=== PATIENT | female | born 1975 | race Caucasian/White ===

== ENCOUNTER 2018-12-01 20:29 | Observation (INO) | payer BC, SELFPAY ==
[2018-12-01 20:30] VITALS: BP 165/98; PULSE 91; RESP 19; TEMP 37; O2SAT 97; BMI 45.8
--- NOTE | 2018-12-01 20:33 | RAD_ITS ---
STUDY: X-RAY CHEST REASON FOR EXAM: Female, 43 years old. Chest tightness. TECHNIQUE: 5 COMPARISON: None. FINDINGS: The lungs are clear and expanded. There is no demonstrated pleural abnormality. Normal size heart. Normal mediastinum and damaso. Normal visualized pulmonary arteries. Normal visualized aortic arch and descending thoracic aorta. Normal visualized thoracic spine. Normal visualized ribs, clavicles, and shoulders. There is no demonstrated abnormality of the visualized soft tissue structures of the upper abdomen. RAD/Chest 1 View (Portable) IMPRESSION: Normal x-ray examination of the chest. Electronically Signed: Steve Leahy DO at 21:15 EST Tel [phone], Service support ,
--- NOTE | 2018-12-01 20:33 | EKG12_ITS ---
Test Reason : CHEST DISCOMFORT Blood Pressure : / mmHG Vent. Rate : 074 BPM Atrial Rate : 074 BPM P-R Int : 086 ms QRS Dur : 100 ms QT Int : 396 ms P-R-T Axes : 050 009 026 degrees QTc Int : 439 ms Sinus rhythm with short NC Low voltage QRS Cannot rule out Inferior infarct , age undetermined Abnormal ECG Confirmed by RICKEY RICKETTS, KARI ([id number]), photography editor MALENA ADAMS ([id number]) on 12/05/2018 9:20:12 AM Referred By: IQRA SULLIVAN Confirmed By:KARI LANG MD
[2018-12-01 21:15] VITALS: O2SAT 99
[2018-12-01 21:32] LABS: Absolute Lymphocyte Count 2.09 X10^3/ul (0.83-4.51); Basophil# 0.01 X10^3/uL; Basophil% 0.1 % (0-1); Eosinophil# 0.15 X10^3/uL; Eosinophils% 1.9 % (0-5); Hematocrit 44.1 % (37-47); Hemoglobin 14.4 g/dl (12.0-15.0); Lymphocyte # 2.09 X10^3/ul (4.0); Mean Corp Hgb Conc 32.7 g/gl (32-36); Mean Corpuscular Hgb 28.5 pg (27.0-32.0); Mean Corpuscular Volume 87.3 fL (81-99); Mean Platelet Vol. 10.7 fl (6.2-12.0); Monocyte# 0.54 X10^3/uL; Neutrophil # 4.95 X10^3/uL (2.7-7.7); Neutrophil % 63.9 % (47-70); Platelet Count 210 K/mm3 (150-450); RBC Distribution Width CV 13.2 % (11.6-14.6); RBC Distribution Width SD 41.9 fl (35.1-43.9); Red Blood Count 5.05 M/mm3 (4.2-5.4); White Blood Count 7.8 K/mm3 (4.4-11.0)
[2018-12-01 21:33] LABS: POSITIVE COUNT NO; POSITIVE DIFFERENTIAL NO; POSITIVE MORPHOLOGY NO
[2018-12-01 21:53] LABS: Anion Gap 6 (5-15); BUN 12 mg/dL (7-18); Calcium,Total 8.9 mg/dL (8.5-10.1); Chloride 107 mmol/L (98-107); EST Glomerular Filtration Rate 84 mL/min (>60); Est Glom Filt Rate - Afr Amer 101 mL/min (>60); Estimated Creatinine Clearance 75.78 ml/min; Glucose 87 mg/dL (74-106); Potassium 3.7 mmol/L (3.5-5.1); Sodium Level 138 mmol/L (136-145)
--- NOTE | 2018-12-01 22:01 | ED.VISSUMM ---
- ER Visit Summary Date of Service: 12/01/18 Chief Complaint: [Chest pain] History of Present Illness: The patient is a 43 F [presents to the emergency department complaint chest pain times 2 weeks. Patient states that she is had intermittent discomfort of tightness that is retrosternal at times will radiate towards her left shoulder. Patient does not seem to think it is exertional per se. Patient at times has had some pain in her hands but she is not sure if that is just related to her work. She denies any nausea or vomiting or diaphoresis. He denies recent travel or surgery. Patient is concerned because she does not go to a doctor and her father at age 53 of a massive heart attack.] Physical Examination: [HEENT-PERRLA, EOMI. Cranial nerves II through XII grossly intact. TMs clear. Mucous membranes moist. No adenopathy. Cardiovascular-regular rate and rhythm without murmur or ectopy Lungs-clear to auscultation, chest wall stable without crepitus or subcu emphysema Abdomen-normoactive bowel sounds, soft, nontender, no rebound or rigidity, no peritoneal signs. Extremities-intact ?4, normal range of motion, normal pulses, atraumatic] Test Results: EKG obtained arrival shows sinus rhythm with a ventricular rate of 74 bpm with a short [place] segment otherwise no acute ST segment changes noted. CBC with differential is normal. Chemistries were unremarkable. Troponin was less than 0.015. Chest x-ray showed nothing acute.] Emergency Department Course and Treatment: [Patient received aspirin in the emergency department. Patient initially presented hypertensive with a blood pressure 169/98 however without any treatment her blood pressure improved to the 130s over 80s.] Treatment Plan: [Admit for further workup and evaluation] Disposition: [Admit] Impression: [Chest pain-rule out acute coronary syndrome.] This note was generated with [employer] dictation software. It may contain incorrect words, spelling, and punctuation that were not noted in review of the chart prior to signing ED Disposition - Plan for ED Patient: Referrals: Briseyda Dickey MD [Primary Care Provider] -
[2018-12-01 22:10] VITALS: BP 137/94; PULSE 82; RESP 20; O2SAT 98
[2018-12-01] MEDS: Aspirin 81 MG TAB.CHEW 324 MG PO (22:11)
--- NOTE | 2018-12-01 22:12 | HP.PCM_ITS ---
Problem List (1) Chest pain Status: Acute History of Present Illness Date of Admission: 12/01/18 Chief Complaint: chest pain The patient is a 43 year old F with a significant history of chronic diarrhea; asthma and allergies who presented to the emergency department with 1-2-week history of substernal episodic pressure-like chest pain. Also he complained of pain at the shoulder blade. He also reports that he is unable to yawn completely. Prior to that he he used to see an [employer] certified internetwork expert but now has an appointment to see a carbon electrodes supervisor. Also patient had SOB and because she has no prescription for breathing treatment she tried her son's Ventolin. She reports bilateral forearm pain left worse than right. She thinks that her bilateral forearm pain is from with at her job. She reports that left forearm is worse since she is left-handed. She denies any nausea, vomiting or diaphoresis. Past Medical History Medical History: Medical History (Last Updated 12/02/18 @ 08:02 by Dexter Rosa MD) Asthma J45.909 Allergies No Known Allergies Allergy (Verified 12/01/18 20:30) Home Medications: Ambulatory Orders Medication Instructions Recorded Loperamide HCl [Imodium A-D] 4 mg PO DAILY 12/01/18 P-Ephed HCl/Fexofenadine HCl 1 tab.sr PO DAILY 12/01/18 [Rita-D 24 Hour Tablet] Surgical History: appendectomy Lives: With Family Smoking Status: Never smoker Alcohol: Rare - *Family History Maternal History Items: Heart Disease, Hypertension Paternal History Items: Heart Disease - Her father had a massive heart attack at 53. Also his paternal grandparents from heart attack. Review of Systems Constitutional: Denies: Chills, Fever, Weight Change HEENT: Denies: Head Aches, Sinus Congestion, Sinus Drainage Cardiovascular: Reports: Chest Pain. Denies: Palpitations Respiratory: Reports: Shortness of Breath. Denies: Cough, Sputum production Gastrointestinal: Denies: Abdominal Pain, Nausea, Vomiting Genitourinary: Denies: Dysuria Musculoskeletal: Denies: Joint Pain, Joint Tenderness Skin: Denies: Rash, Wounds Neurological: Denies: Numbness, Tingling, Focal weakness Psychiatric: Denies: Anxiety, Depression, Homicidal Ideations, Suicidal Ideations Hematologic/ Lymphatic: Denies: Easy Bruising, Easy Bleeding VTE Information - Inpt Only VTE Present on Admission: No VTE Mechan Device Prophylaxis: None VTE Pharm Prophylaxis ordered?: Yes Patient Problems: Active and Suspected Problems Chest pain (Acute) - Physical Exam General: Alert, Oriented x3, Cooperative HEENT: Atraumatic, PERRLA, EOMI, Normocephalic Neck: Supple, No JVD, Negative Carotid Bruits Lungs: Clear to auscultation, Normal air movement Cardiovascular: Regular rate, No murmurs Abdomen: Bowel Sounds Present, Soft, Non Tender Extremities: No edema, Capillary Refill Less than 3 Seconds Skin: No rashes, No breakdown Musculoskeletal: No Tenderness to Palpation of Joints or Extremities Neurological: Neuro grossly intact Psych/Mental Status: Normal Affect, Appropriate Vital Signs Temp Pulse Resp BP Pulse Ox 98.6 F 82 20 H 137/94 H 98 12/01/18 20:30 12/01/18 22:10 12/01/18 22:10 12/01/18 22:10 12/01/18 22:10 Oxygen Delivery Method Room Air Weight: 117.3 kg Body Mass Index (BMI) 45.8 Laboratory Tests Past 24 Hrs 12/01/18 12/01/18 21:20 21:20 WBC 7.8 RBC 5.05 Hgb 14.4 Hct 44.1 MCV 87.3 MCH 28.5 MCHC 32.7 RDW 13.2 RDW Differential 41.9 Plt Count 210 MPV 10.7 Immature Gran % (Auto) 0.100 Neut % (Auto) 63.9 Lymph % (Auto) 27.0 [place] % (Auto) 7.0 Eos % (Auto) 1.9 Baso % (Auto) 0.1 Absolute Neuts (auto) 5.0 Absolute Lymphs (auto) 2.09 Total Counted Not Reportable Sodium 138 Potassium 3.7 Chloride 107 Carbon Dioxide 25.0 Anion Gap 6 BUN 12 Creatinine 0.80 Estim Creat Clear Calc 75.78 Est GFR (MDRD) Af Amer 101 Est GFR (MDRD) Non-Af 84 BUN/Creatinine Ratio 15.0 Glucose 87 Calcium 8.9 Troponin I < 0.015 Assessment/Plan All Active Problems Chest pain (Acute) The patient is a 43 year old F with a significant history of chronic diarrhea; asthma and allergies who presented to the emergency department with 1-2-week history of substernal episodic pressure-like chest pain. Chest pain Admit to a monitored bed on pcu CXR independently reviewed confirms no acute cardiopulmonary process. EKG independently reviewed confirms no ST or T wave abnormality. Received aspirin 325 mg in the emergency department. ASA 81 mg p.o. daily SL NTG 0.4 mg prn as needed for chest pain We will check lipid panel. Serial cardiac enzymes Stat EKG as needed for chest pain Tread mill Stress test in the AM if the cardiac enzymes are negative History of Asthma PRN albuterol ordered. Allergies On Rita-D at home. Claritin ordered in the patient. Chronic Diarrhea Imodium ordered. DVT prophylaxis Continue with Lovenox. Code Visit OBSV E&M: 92146 Initial observation care L3
[2018-12-01 22:44] VITALS: BP 132/95; PULSE 81; RESP 15; TEMP 35.9; O2SAT 98
[2018-12-01 23:30] VITALS: BP 125/85; PULSE 74; RESP 18; O2SAT 97
[2018-12-01 23:44] VITALS: PULSE 81
[2018-12-02] VITALS (8 sets, daily range): BP systolic 124–152; BP diastolic 69–96; PULSE 71–109; RESP 16–18; TEMP 36.4–36.8; O2SAT 97–100; BMI 45.2; BMI 45.3
[2018-12-02 04:20] LABS: Absolute Lymphocyte Count 1.78 X10^3/ul (0.83-4.51); Absolute Neutrophil Count 3.9 X10^3/uL (2.0-7.7); Basophil# 0.02 X10^3/uL; Basophil% 0.3 % (0-1); Eosinophil# 0.14 X10^3/uL; Eosinophils% 2.2 % (0-5); Hematocrit 38.4 % (37-47); Hemoglobin 12.5 g/dl (12.0-15.0); Lymphocyte # 1.78 X10^3/ul (4.0); Mean Corp Hgb Conc 32.6 g/gl (32-36); Mean Corpuscular Hgb 28.5 pg (27.0-32.0); Mean Corpuscular Volume 87.5 fL (81-99); Mean Platelet Vol. 10.6 fl (6.2-12.0); Monocyte# 0.51 X10^3/uL; Neutrophil % 61.3 % (47-70); Platelet Count 186 K/mm3 (150-450); RBC Distribution Width SD 41.8 fl (35.1-43.9); Red Blood Count 4.39 M/mm3 (4.2-5.4); White Blood Count 6.4 K/mm3 (4.4-11.0)
[2018-12-02 04:25] LABS: POSITIVE COUNT NO; POSITIVE DIFFERENTIAL NO; POSITIVE MORPHOLOGY NO
[2018-12-02 04:26] LABS: Partial Thromboplast Time 30.8 Seconds (24.1-36.2); Prothrombin Time (Protime)PT. 13.1 SECONDS (11.7-14.9)
[2018-12-02 04:35] LABS: BUN 11 mg/dL (7-18); BUN/Creat Ratio 14.3 RATIO (10-20); Calcium,Total 8.5 mg/dL (8.5-10.1); Cholesterol 189 mg/dL (200); Creatinine, Serum 0.77 mg/dL (0.55-1.02); EST Glomerular Filtration Rate 87 mL/min (>60); Est Glom Filt Rate - Afr Amer 106 mL/min (>60); Estimated Creatinine Clearance 78.73 ml/min; Glucose 88 mg/dL (74-106); Triglycerides 166 mg/dL
[2018-12-02 04:36] LABS: Anion Gap 5 (5-15); Chloride 108 mmol/L (98-107); High Density Lipoprotein 42 mg/dL; Potassium 3.8 mmol/L (3.5-5.1); Sodium Level 141 mmol/L (136-145); Very Low Density Lipoprotein 33 mg/dL (5-40)
--- NOTE | 2018-12-02 05:55 | EKG12_ITS ---
Test Reason : AM Blood Pressure : / mmHG Vent. Rate : 070 BPM Atrial Rate : 070 BPM P-R Int : 124 ms QRS Dur : 066 ms QT Int : 396 ms P-R-T Axes : 053 015 040 degrees QTc Int : 427 ms Normal sinus rhythm with sinus arrhythmia Low voltage QRS Borderline ECG When compared with ECG of 01-DEC-2018 23:47, MANUAL COMPARISON REQUIRED, DATA IS UNCONFIRMED Confirmed by RICKEY RICKETTS, KARI ([id number]), mapping editor ALEXIA SALDANA ([id number]) on 12/08/2018 9:49:53 AM Referred By: Confirmed By:KARI LANG MD
[2018-12-02] MEDS: Aspirin E.C. 81 MG Tablet PO (06:08)
[2018-12-02] MEDS: Loperamide 2 MG Capsule 4 MG PO (09:28)
--- NOTE | 2018-12-02 12:55 | STRESSREP ---
Stress Test Report Exercise myocardial perfusion stress test. 43-year-old lady with a history of chest pain. Exercise protocol. Resting EKG demonstrates normal sinus rhythm with a rate of 76 bpm normal intervals noted resting blood pressure 110/70 mmHg. The patient exercised according to regular [place] protocol for total duration of 6 minutes the maximum heart rate attained was 173 bpm which was 97% of maximum predicted heart rate the maximum workload was 7 metabolic equivalents. The resting blood pressure 110/70 mmHg with a peak blood pressure 182/84 mmHg. At rest and during peak infusion there were no ST or T wave changes noted suggest ischemia no clinical angina was noted. Myocardial perfusion protocol. 14.2 mCi of technetium 99m sestamibi was injected at rest. The patient exercised according to regular [place] protocol for total duration of 6 minutes at peak exercise 45.0 mCi of technetium 99m sestamibi was injected stress images were obtained stress and rest images were reconstructed and compared in the short axis vertical long horizontal long axis. Gated images were also obtained for Perfusion SPECT analysis: Review of the stress images demonstrate normal uptake of tracer noted in all areas of myocardium. The rest images similarly demonstrate normal uptake of tracer noted in all areas of myocardium. No reversibility is noted suggest ischemia no previous infarct is noted. Gated SPECT analysis: The gated ejection fraction is noted to be 65%. Conclusion: Normal exercise myocardial perfusion stress test. Preserved ejection fraction. Good functional capacity.
--- NOTE | 2018-12-02 13:23 | DCINST_ITS ---
- Discharge Diagnoses Current Active Problems: Current Active and Chronic Problems (Last Updated 12/02/18 @ 08:02 by Dexter Rosa MD) Chest pain (Acute) You will use the following diet at home:: Cardiac Your food should be the consistency of: Regular Your liquids should be the consistency of: Regular/Thin Discharge Activity: Return to Normal Activity Allergies/Adverse Reactions: Allergies No Known Allergies Allergy (Verified 12/01/18 20:30) Medications to take at Discharge Loperamide HCl [Imodium A-D] 4 mg PO DAILY 12/01/18 P-Ephed HCl/Fexofenadine HCl [Rita-D 24 Hour Tablet] 1 tab.sr PO DAILY 12/01/18 Primary Care Physician: Briseyda Dickey MD [Primary Care Provider] - Please follow up with your Primary Care Physician in: 1-2 weeks Test Results: Test results from this visit will be discussed in further detail at your follow- up appointment, if applicable. Please Follow Up With: Nic Hernandez MD When: Keep prior appointment Proposed Discharge Date: 12/02/18
--- NOTE | 2018-12-02 14:08 | DS.PCM_ITS ---
<Otis Boykin - Last Filed: 12/02/18 14:04> Discharge Date and Diagnosis Date of Admission: 12/01/18 Date of Discharge: 12/02/18 - Primary Discharge Diagnosis Active and Suspected Problems (Last Updated 12/02/18 @ 08:02 by Dexter Rosa MD) Chest pain (Acute) - musculoskeletal Morbid obesity Asthma Hospital Course and Treatment Imaging Results: 12/02/18 05:55 Nuclear Stress Test - Treadmil [NM] AM (NON MEDS) Conclusion: Normal exercise myocardial perfusion stress test. Preserved ejection fraction. Good functional capacity. RAD/Chest 1 View (Portable) IMPRESSION: Normal x-ray examination of the chest. Operations: None Procedures: Stress test Summary of Care Provided: Hospital Course: The patient is a 43 year old F with pmhx of morbid obesity, asthma, and family hx of CAD, who presented to the ER with increasing chest tightness. She had a negative CXR, EKG, troponin. She was admitted for chest pain rule out. She was maintained on tele - no events. Troponin was negative x 3. Stress test the following morning was negative. She had noted that she had hurt her neck back and shoulders at work, so her chest pain was felt to be musculoskeletal. There may also be a component of asthma, as she had not been using her inhaler at home regularly. She may also have a component of acid reflux as she has noticed increased heartburn lately. I advised OTC NSAIDs for musculoskeletal pain, OTC antacids for heartburn, and for her to be sure to see her configuration management advisor Dr. Hernandez for her asthma. She will need to follow up with her PCP in 1-2 weeks. She was discharged home in stable condition. This patient was seen by Otis Boykin PA-C under the supervision of Doctor Sary. [] - Physical Exam General: Alert, Oriented x3, Cooperative HEENT: Atraumatic, PERRLA, EOMI, Normocephalic Neck: Supple, No JVD, Negative Carotid Bruits Lungs: Clear to auscultation, Normal air movement Cardiovascular: Regular rate, No murmurs Abdomen: Bowel Sounds Present, Soft, Non Tender, Obese Extremities: No edema, Capillary Refill Less than 3 Seconds Skin: No rashes, No breakdown Musculoskeletal: No Tenderness to Palpation of Joints or Extremities Neurological: Cranial nerves II-XII grossly intact Psych/Mental Status: Normal Affect, Appropriate, Alert and oriented to time, place, person, mood and affect Vital Signs Temp Pulse Resp BP Pulse Ox 97.6 F L 109 H 16 133/76 H 98 12/02/18 09:30 12/02/18 13:11 12/02/18 09:30 12/02/18 09:30 12/02/18 09:30 Oxygen Delivery Method Room Air Weight: 255 lb 8.252 oz Body Mass Index (BMI) 45.2 Laboratory Tests Past 24 Hrs 12/01/18 12/01/18 12/02/18 21:20 21:20 00:28 WBC 7.8 RBC 5.05 Hgb 14.4 Hct 44.1 MCV 87.3 MCH 28.5 MCHC 32.7 RDW 13.2 RDW Differential 41.9 Plt Count 210 MPV 10.7 Immature Gran % (Auto) 0.100 Neut % (Auto) 63.9 Lymph % (Auto) 27.0 [place] % (Auto) 7.0 Eos % (Auto) 1.9 Baso % (Auto) 0.1 Absolute Neuts (auto) 5.0 Absolute Lymphs (auto) 2.09 Total Counted Not Reportable PT INR APTT Sodium 138 Potassium 3.7 Chloride 107 Carbon Dioxide 25.0 Anion Gap 6 BUN 12 Creatinine 0.80 Estim Creat Clear Calc 75.78 Est GFR (MDRD) Af Amer 101 Est GFR (MDRD) Non-Af 84 BUN/Creatinine Ratio 15.0 Glucose 87 Calcium 8.9 Troponin I < 0.015 < 0.015 Triglycerides Cholesterol LDL Cholesterol VLDL Cholesterol HDL Cholesterol 12/02/18 12/02/18 12/02/18 03:44 03:44 03:44 WBC 6.4 RBC 4.39 Hgb 12.5 Hct 38.4 MCV 87.5 MCH 28.5 MCHC 32.6 RDW 13.0 RDW Differential 41.8 Plt Count 186 MPV 10.6 Immature Gran % (Auto) 0.200 Neut % (Auto) 61.3 Lymph % (Auto) 28.0 [place] % (Auto) 8.0 Eos % (Auto) 2.2 Baso % (Auto) 0.3 Absolute Neuts (auto) 3.9 Absolute Lymphs (auto) 1.78 Total Counted Not Reportable PT 13.1 INR 1.0 APTT 30.8 Sodium 141 Potassium 3.8 Chloride 108 H Carbon Dioxide 28.0 Anion Gap 5 BUN 11 Creatinine 0.77 Estim Creat Clear Calc 78.73 Est GFR (MDRD) Af Amer 106 Est GFR (MDRD) Non-Af 87 BUN/Creatinine Ratio 14.3 Glucose 88 Calcium 8.5 Troponin I < 0.015 Triglycerides 166 Cholesterol 189 LDL Cholesterol 114 VLDL Cholesterol 33 HDL Cholesterol 42 Discharge Diet: Low fat/ Low Cholesterol, 2000 mg Sodium Diet Discharge Activity: Return to Normal Activity Home Medications: Medications to take at Discharge Loperamide HCl [Imodium A-D] 4 mg PO DAILY 12/01/18 P-Ephed HCl/Fexofenadine HCl [Rita-D 24 Hour Tablet] 1 tab.sr PO DAILY 12/01/18 Primary Care Physician: Briseyda Dickey MD [Primary Care Provider] - Please follow up with your Primary Care Physician in: 1-2 weeks Please Follow Up With: Nic Hernandez MD When: Keep prior appointment Disposition: Home Minutes spent on discharge:: 35 Patient Condition:: Stable Medical Necessity - Tobacco Use Smoking Status: Never smoker Meaningful Use Info Meaningful Use Diagnoses (Choose all that apply): None applicable <SaryMissy Riggins - Last Filed: 12/02/18 14:59> Hospital Course and Treatment Summary of Care Provided: Patient seen by Otis Boykin PA-C under my supervision. The patient is a 43 year old F was admitted with a complaint of increasing chest tightness. Troponins x3, EKG and chest x-ray are all negative. She was admitted to be managed for chest pain to rule out ACS. She had a stress test which was negative. Patient remained stable and was discharged home on 12/02/2018. She is follow-up with her primary care doctor and configuration management advisor for her asthma. She was given [id number] antacids for heartburn and is also thought that her pain might have been musculoskeletal she says she had hurt her neck back and shoulders at work. Patient seen and examined prior to discharge. She denied any chest pain at the time of review and denied any fever or chills, palpitations or dizziness, abdominal pain, diarrhea vomiting. Review of systems otherwise negative. Labs and vitals reviewed. Medications reviewed and reconciled. o/e: Vital Signs Height 5 ft 3 in Weight: 255 lb 8.252 oz Weight in Pounds 255.5 lbs Pulse Ox 100 Temperature 97.9 F Pulse Rate 105 Respiratory Rate 16 Blood Pressure 128/95 Blood Pressure Position Sitting [] General: Alert, Oriented x3, Cooperative HEENT: Atraumatic, PERRLA, EOMI, Normocephalic Neck: Supple, No JVD, Negative Carotid Bruits Lungs: Clear to auscultation, Normal air movement Cardiovascular: Regular rate, No murmurs Abdomen: Bowel Sounds Present, Soft, Non Tender, Obese Extremities: No edema, Capillary Refill Less than 3 Seconds Skin: No rashes, No breakdown Musculoskeletal: No Tenderness to Palpation of Joints or Extremities Neurological: Cranial nerves II-XII grossly intact Psych/Mental Status: Normal Affect, Appropriate, Alert and oriented to time, place, person, mood and affect Plan as described above. Rest as per Otis Boykin PA-C's note, which I have reviewed and agree with. - Physical Exam Vital Signs Temp Pulse Resp BP Pulse Ox 97.9 F 105 H 16 128/95 H 100 12/02/18 14:16 12/02/18 14:16 12/02/18 14:16 12/02/18 14:16 12/02/18 14:16 Oxygen Delivery Method Room Air Weight: 255 lb 8.252 oz Body Mass Index (BMI) 45.2 Laboratory Tests Past 24 Hrs 12/01/18 12/01/18 12/02/18 21:20 21:20 00:28 WBC 7.8 RBC 5.05 Hgb 14.4 Hct 44.1 MCV 87.3 MCH 28.5 MCHC 32.7 RDW 13.2 RDW Differential 41.9 Plt Count 210 MPV 10.7 Immature Gran % (Auto) 0.100 Neut % (Auto) 63.9 Lymph % (Auto) 27.0 [place] % (Auto) 7.0 Eos % (Auto) 1.9 Baso % (Auto) 0.1 Absolute Neuts (auto) 5.0 Absolute Lymphs (auto) 2.09 Total Counted Not Reportable PT INR APTT Sodium 138 Potassium 3.7 Chloride 107 Carbon Dioxide 25.0 Anion Gap 6 BUN 12 Creatinine 0.80 Estim Creat Clear Calc 75.78 Est GFR (MDRD) Af Amer 101 Est GFR (MDRD) Non-Af 84 BUN/Creatinine Ratio 15.0 Glucose 87 Calcium 8.9 Troponin I < 0.015 < 0.015 Triglycerides Cholesterol LDL Cholesterol VLDL Cholesterol HDL Cholesterol 12/02/18 12/02/18 12/02/18 03:44 03:44 03:44 WBC 6.4 RBC 4.39 Hgb 12.5 Hct 38.4 MCV 87.5 MCH 28.5 MCHC 32.6 RDW 13.0 RDW Differential 41.8 Plt Count 186 MPV 10.6 Immature Gran % (Auto) 0.200 Neut % (Auto) 61.3 Lymph % (Auto) 28.0 [place] % (Auto) 8.0 Eos % (Auto) 2.2 Baso % (Auto) 0.3 Absolute Neuts (auto) 3.9 Absolute Lymphs (auto) 1.78 Total Counted Not Reportable PT 13.1 INR 1.0 APTT 30.8 Sodium 141 Potassium 3.8 Chloride 108 H Carbon Dioxide 28.0 Anion Gap 5 BUN 11 Creatinine 0.77 Estim Creat Clear Calc 78.73 Est GFR (MDRD) Af Amer 106 Est GFR (MDRD) Non-Af 87 BUN/Creatinine Ratio 14.3 Glucose 88 Calcium 8.5 Troponin I < 0.015 Triglycerides 166 Cholesterol 189 LDL Cholesterol 114 VLDL Cholesterol 33 HDL Cholesterol 42 Call your doctor if you observe: Chest pain Code Visit Inpatient E&M: 41872 Disch Hosp
== END 2018-12-02 13:22 | disposition home or self-care (01) ==
LOC: ED 22:13 → PCU 23:44
PROVIDERS: Admitting Provider Hospitalist; Emergency Provider Emergency Medicine; Family Provider Internal Medicine; PCP Internal Medicine; Visit Provider Student in an Organized Health Care Education/Training Program
DX: R07.89 Other chest pain (principal); E66.01 Morbid (severe) obesity due to excess calories; Z68.42 Body mass index [BMI] 45.0-49.9, adult; Z71.3 Dietary counseling and surveillance; J45.909 Unspecified asthma, uncomplicated; Z82.49 Family history of ischemic heart disease and other diseases of the circulatory system; K52.9 Noninfective gastroenteritis and colitis, unspecified; Z79.899 Other long term (current) drug therapy; R94.31 Abnormal electrocardiogram [ECG] [EKG]
CPT/HCPCS: 36415; 71045; 78452; 80048; 80061; 84484; 85025; 85610; 85730; 93005; 93017; 99218; 99285; A9500; A4216; G0378

== ENCOUNTER → 2019-01-27 | Outpatient (CLI) | payer BC, SELFPAY ==
[2019-01-24 15:59] VITALS: BMI 44.8
[2019-01-27 10:18] LABS: ALB/GLOB Ratio 0.8 RATIO (0.9-2.4); AST(SGOT) 27 U/L (15-37); Alanine Aminotransfer ALT/SGPT 33 U/L (13-56); Albumin, Serum 3.3 g/dL (3.2-5.0); Alkaline Phosphatase 99 U/L (45-117); Anion Gap 2 (5-15); BUN 11 mg/dL (7-18); BUN/Creat Ratio 13.3 RATIO (10-20); Calcium,Total 8.7 mg/dL (8.5-10.1); Chloride 107 mmol/L (98-107); Creatinine, Serum 0.82 mg/dL (0.55-1.02); EST Glomerular Filtration Rate 80 mL/min (>60); Est Glom Filt Rate - Afr Amer 97 mL/min (>60); Globulin 4.2 g/dL (2.2-4.2); Glucose 78 mg/dL (74-106); Potassium 4.1 mmol/L (3.5-5.1); Protein, Total 7.5 g/dL (6.4-8.2); Sodium Level 138 mmol/L (136-145)
[2019-01-27 10:23] LABS: Hemoglobin A1c 5.4 % (4.2-6.3)
== END | disposition home or self-care (01) ==
LOC: LAB 09:29
PROVIDERS: Family Provider Internal Medicine; PCP Internal Medicine; Referring Provider Internal Medicine; Visit Provider Internal Medicine
DX: K52.9 Noninfective gastroenteritis and colitis, unspecified (principal); E66.01 Morbid (severe) obesity due to excess calories
CPT/HCPCS: 36415; 80053; 82306; 83036

== ENCOUNTER 2020-02-15 16:39 | Emergency (ER) | payer BC, SELFPAY ==
[2020-02-15 16:03] VITALS: BMI 44.8
[2020-02-15 16:40] VITALS: BP 155/86; PULSE 81; RESP 16; TEMP 36.6; O2SAT 100; BMI 43.2
--- NOTE | 2020-02-15 17:27 | US_ITS ---
STUDY: VENOUS DOPPLER ULTRASOUND - BILATERAL LOWER EXTREMITIES REASON FOR EXAM: Female, 45 years old. BILAT SWELLING and RT CALF LUMP TECHNIQUE: Ultrasound evaluation of the deep vein system to include jones-scale imaging and compression was performed. Jones-scale imaging and Doppler sonographic evaluation, including duplex spectral analysis and qualitative color flow sonography, was performed. COMPARISON: None. FINDINGS: RIGHT LEG Common Femoral Vein: Normal compression, spontaneity and augmentation. Normal color Doppler. Common Femoral Vein/Greater Saphenous Junction: Normal compression, spontaneity and augmentation. Normal color Doppler. Deep Femoral Vein: Normal compression, spontaneity and augmentation. Normal color Doppler. Femoral Proximal: Normal compression, spontaneity and augmentation. Normal color Doppler. Femoral Middle: Normal compression, spontaneity and augmentation. Normal color Doppler. Femoral Distal: Normal compression, spontaneity and augmentation. Normal color Doppler. Popliteal Vein: Normal compression, spontaneity and augmentation. Normal color Doppler. Posterior Tibial Vein: Normal compression, spontaneity and augmentation. Normal color Doppler. Peroneal Vein: Normal compression, spontaneity and augmentation. Normal color Doppler. There is an ill-defined echogenic approximately 2.7 cm focus in the region of the right calf. LEFT LEG Common Femoral Vein: Normal compression, spontaneity and augmentation. Normal color Doppler. Common Femoral Vein/Greater Saphenous Junction: Normal compression, spontaneity and augmentation. Normal color Doppler. Deep Femoral Vein: Normal compression, spontaneity and augmentation. Normal color Doppler. Femoral Proximal: Normal compression, spontaneity and augmentation. Normal color Doppler. Femoral Middle: Normal compression, spontaneity and augmentation. Normal color Doppler. Femoral Distal: Normal compression, spontaneity and augmentation. Normal color Doppler. Popliteal Vein: Normal compression, spontaneity and augmentation. Normal color Doppler. Posterior Tibial Vein: Normal compression, spontaneity and augmentation. Normal color Doppler. Peroneal Vein: Normal compression, spontaneity and augmentation. Normal color Doppler. US/Venous Duplex Imag/Bertin Extrem IMPRESSION: Normal venous Doppler ultrasound of the bilateral lower extremities. No DVT ill-defined echogenic approximately 2.7 cm focus in the region of the right calf. This may represent benign or malignant mass. Differential would also include hematoma. Follow-up MRI would be recommended. Electronically Signed: Nic Remy, at 18:23 EDT Tel , Service support ,
--- NOTE | 2020-02-15 18:42 | ED.VISSUMM ---
- ER Visit Summary Date of Service: 02/15/20 Chief Complaint: Pain and swelling to right leg [] History of Present Illness: The patient is a 45 F [presents to the emergency department from urgent care with concern for DVT. Patient states that she fell 3 weeks ago and initially did not think anything of it was able to go to work. Patient then a couple weeks ago started having discomfort in her right calf.] Patient has no recent travel or surgery history. She denies any chest pain or shortness of breath. Yesterday she noticed a small lump to the medial aspect of her right ankle became concerned. She denies any back pain. Physical Examination: [HEENT-PERRLA, EOMI. Cranial nerves II through XII grossly intact. TMs clear. Mucous membranes moist. No adenopathy. Cardiovascular-regular rate and rhythm without murmur or ectopy Lungs-clear to auscultation, chest wall stable without crepitus or subcu emphysema Abdomen-normoactive bowel sounds, soft, nontender, no rebound or rigidity, no peritoneal signs. Extremities-intact ?4, normal range of motion, normal pulses, atraumatic. Patient has trace pretibial edema bilaterally. She has tenderness diffusely about the right calf. Positive Homans sign. Patient has a small fullness in the soft tissues of the medial right ankle above the medial malleolus that slightly tender to palpation.] Test Results: [Venous Dopplers were negative for DVT] Emergency Department Course and Treatment: [Follow-up with her primary care physician within next 3 4 days. Patient advised to use ibuprofen or Tylenol for discomfort.] Treatment Plan: [Low up with primary care physician in 3 to 5 days.] Disposition: [Discharged home in stable condition] Impression: [Right calf strain Bilateral lower extremity edema] This note was generated with [employer] dictation software. It may contain incorrect words, spelling, and punctuation that were not noted in review of the chart prior to signing ED Disposition - Plan for ED Patient: Referrals: Roslyn Dumont MD [Primary Care Provider] -
--- NOTE | 2020-02-15 18:44 | ED.DEP ---
ED Disposition - Plan for ED Patient: Instructions: ED Peripheral Edema, Bilateral, ED Strain Muscle Ext Referrals: Roslyn Dumont MD [Primary Care Provider] - 5-7 Days
[2020-02-15 18:54] VITALS: BP 121/77; PULSE 62; RESP 15; O2SAT 98
== END 2020-02-15 18:55 | disposition home or self-care (01) ==
LOC: ED 18:49
PROVIDERS: Emergency Provider Emergency Medicine; PCP Internal Medicine
DX: S86.111A Strain of other muscle(s) and tendon(s) of posterior muscle group at lower leg level, right leg, initial encounter (principal); W19.XXXA Unspecified fall, initial encounter
CPT/HCPCS: 93970; 99282

== ENCOUNTER → 2020-03-27 10:38 | Outpatient (CLI) | payer BC, SELFPAY ==
[2020-03-24 13:42] VITALS: BMI 43.2
--- NOTE | 2020-03-27 10:48 | US_ITS ---
STUDY: SUPERFICIAL ULTRASOUND - RIGHT CALF. REASON FOR EXAM: Female, 45 years old. Rt medial/distal calf lump TECHNIQUE: A superficial ultrasound was performed with real-time and static macedo-scale imaging. COMPARISON: None. FINDINGS: The distal medial portion of the catheter was examined by ultrasound. No sonographic abnormality is seen. US/Ext Non Vasc Limited/Soft Tiss IMPRESSION: No sonographic abnormality is seen. Electronically Signed: Chin Baldwin, at 13:03 EDT , Service support ,
== END ==
PROVIDERS: PCP Internal Medicine; Referring Provider Nurse Practitioner Family; Visit Provider Nurse Practitioner Family
DX: R22.41 Localized swelling, mass and lump, right lower limb (principal)
CPT/HCPCS: 76882

== ENCOUNTER 2020-07-14 17:00 | Outpatient (RCR) | payer BC, SELFPAY ==
[2020-03-24 13:42] VITALS: BMI 43.2
--- NOTE | 2020-06-23 18:28 | HP.PTEVAL_ITS ---
Patient's Visit Information GANESH COHN is a 45 year old F referred to Physical Therapy by Dr. Sloan Garcia MD with a diagnosis of DJD and menisus tear R knee. Date of Evaluation: 06/23/20 Physical Therapist: ANTONIO Irving - Visit Plan Frequency: 2x /Week Duration: 6 Weeks Plan: 2X/ week for 6 weeks for gastroc/soleus stretching, knee, hip and ankle strengthening with some core stability, with MT, US and E-stim as needed. with HEP (foam rolling??) - Subjective Pt fell down the steps at end of December and MRI at the end of April. SHe has a mesicus tear and gets pain back of calf posterior at top of calf and pain in front if knee and tightness in the HS to the point she can not straighten it. The first few steps are the worst and once she works it out she walk for a long time. The pain in her calf does not stop her from walking. gave her a cortizone shot and felt great but now it is back.... she feels instabiltiy in her R knee when walking almost like she is going to hyeper-extend... it has done it a few times. no pain with sitting. She has been twice for blood clots and they were negative. Stairs: they are ok... hard when she tries to stretch her leg out again.. feels like it does not want to stretch.... - Pain R knee pain Pain Intensity (Out of 10): 2 - Objective Gait: walks with decrease stance time on the R. otherwise normal gait. Observation: pt likes to hyper-extend her knees with standing. R knee AROM.. 0-126. L knee AROM.. 0-125. LE MMT: B hip flex 4/5, R knee ext 4-/5 and L 4/5, R knee flex 4-/5 and L 4/5, B DF and PF 4/5 but increase pain on the R, B hip abd 4/5, B hip ext 4/5. heel and toe walking...slight pain there. PlanK; Able to do good for X 10 seconds with no back or knee pain. gastroc length... fair. HS length... good. palpation: tender medial gastroc and also along the medial and lateral joint like and pes ans area on the R - Goals Goal 1:: I HEP Goal Time Frame: 4-6 Weeks Goal 2:: Decrease R posterior knee pain to 0/10 with transitioning and walking Goal Time Frame: 4-6 Weeks Goal 3:: Increase LE strengthening by 1/2 muscle grade Goal Time Frame: 4-6 Weeks - Rehabilitation Potential Rehabilitation Potential: Excellent - Anticipated Interventions Patient/Client Instruction: Educate patient on: Condition, Plan of Care For the Purpose of:: To decrease pain, To increase ROM, To improve nutrient delivery to tissue, To improve muscle performance and motor function, To improve ability to perform ADL's, To increase tolerance to activity/condition/position, To improve performance and independence with ADL's, To improve gait and locomotor functions, To improve health of tissue, To increase flexibility/ROM Therapeutic Exercise to Include: Strength training, Postural training, Flexibilty training, Gait and locomotor training, Passive ROM, Active ROM, Dynamic Lumbar Stabilization For the Purpose of:: To decrease pain, To increase ROM, To improve muscle performance and motor function, To improve ability to perform ADL's, To increase tolerance to activity/condition/position, To improve performance and independence with ADL's, To improve gait and locomotor functions, To improve health of tissue, To decrease soft tissue restriction, To increase flexi bility/ROM IF ES: Yes Ultrasound (thermal/non thermal): Yes For the Purpose of:: To decrease pain, To decrease swelling/inflammation, To increase ROM, To improve nutrient delivery to tissue Thank you for the opportunity to evaluate your patient. For Medicare and Medicare HMO plans, please review the plan of care and approve it. It will need to be FAXED BACK to us at [phone] for Medicare purposes. For Medicare only, by signing this I certify the plan of care. Please let me know if there are questions or concerns regarding this plan of care. Physician Signature: Date:
--- NOTE | 2020-09-01 13:30 | HP.PT.NRP ---
GANESH COHN was seen in my office for initial evaluation on 06/23/20. The following Plan of Care was established for this patient: Initial Frequency: 2x /Week Initial Duration: 6 Weeks Patient/Client Instruction: Educate patient on: Condition, Plan of Care For the Purpose of:: To decrease pain, To increase ROM, To improve nutrient delivery to tissue, To improve muscle performance and motor function, To improve ability to perform ADL's, To increase tolerance to activity/condition/position, To improve performance and independence with ADL's, To improve gait and locomotor functions, To improve health of tissue, To increase flexibility/ROM Therapeutic Exercise to Include: Strength training, Postural training, Flexibilty training, Gait and locomotor training, Passive ROM, Active ROM, Dynamic Lumbar Stabilization For the Purpose of:: To decrease pain, To increase ROM, To improve muscle performance and motor function, To improve ability to perform ADL's, To increase tolerance to activity/condition/position, To improve performance and independence with ADL's, To improve gait and locomotor functions, To improve health of tissue, To decrease soft tissue restriction, To increase flexibility/ROM IF ES: Yes Ultrasound (thermal/non thermal): Yes For the Purpose of:: To decrease pain, To decrease swelling/inflammation, To increase ROM, To improve nutrient delivery to tissue This patient was last seen in our office 07/24/20. Pertinent comments regarding their Physical therapy will appear below: JANETH PT.. Pt was to follow up with as her symptoms were getting worse. At this point I will be discontinuing this patient from physical therapy. I would be happy to see this patient again in the future if found appropriate by the physician. Thank you! Mira Tineo, MPT
== END 2020-07-14 19:00 | disposition home or self-care (01) ==
LOC: PT 17:00
PROVIDERS: PCP Internal Medicine; Referring Provider Orthopaedic Surgery Sports Medicine; Visit Provider Orthopaedic Surgery Sports Medicine
DX: M17.11 Unilateral primary osteoarthritis, right knee (principal); S83.206D Unspecified tear of unspecified meniscus, current injury, right knee, subsequent encounter
CPT/HCPCS: 97014; 97035; 97110; 97140; 97161; G0283

== ENCOUNTER 2020-12-03 16:30 | Outpatient (RCR) | payer OTHER, SELFPAY ==
[2020-03-24 13:42] VITALS: BMI 43.2
[2020-10-29 09:15] VITALS: BMI 45.5
--- NOTE | 2020-10-29 17:04 | HP.PTEVAL ---
Patient's Visit Information GANESH COHN is a 45 year old F referred to Physical Therapy by Dr. Sloan Garcia MD with a diagnosis of DJD R knee and severe PF arthritis. Date of Evaluation: 10/29/20 Physical Therapist: ANTONIO Irving - Visit Plan Frequency: 2x /Week Duration: 2 Weeks Plan: 2 visits to learn I AT program for R knee and hip and some core strengthening and some Knee flexion stretching. Pt has her own pool in the summer but will consider AT on her own during . Then 2 land visits to learn gym program and HEP. HEP: SLR, QS - Subjective She had surgery in Aug 2020. Pt was months ago and she had a torn meniscus and had a cramp in her calf. Dr just has menisectomy and had arthritis under his R knee cap. She was still having problems after surgery. said no therapy and said that she needed a knee replacement. 2 weeks ago she does not have the leg cramps and going down the stairs is better. She just started going down stairs recip. She does feel it swelling back up going down the stairs. She is struggling with her R knee feel swollen... center feels swollen, she can not get it to bend back on the steps. She really wants a HEP. SHe has an Elliptical but has not tried it since the surgery. She had a cortizone injection. - Pain R knee pain Pain Intensity (Out of 10): 0 - Objective R knee ext -1 degree from full extension and 100 degrees. L knee ext 0 degrees and 106 degrees knee fleixon. Gait: Walks with slightly decrease stance time on the R. LE MMT: Hip flexion R 4-/5, R knee ext 4-/5, R knee flexion 4/5, R hip abd 4/5, - Goals Goal 1:: I HEP for AT and land for [employer] and wellness membership Goal Time Frame: 4-6 Weeks Goal 2:: Be able to go up and down stairs recip with increase ease. Goal Time Frame: 4-6 Weeks - Rehabilitation Potential Rehabilitation Potential: Good - Anticipated Interventions Patient/Client Instruction: Educate patient on: Condition, Plan of Care For the Purpose of:: To decrease pain, To decrease swelling/inflammation, To increase ROM, To improve nutrient delivery to tissue, To improve muscle performance and motor function, To improve ability to perform ADL's, To increase tolerance to activity/condition/position, To improve performance and independence with ADL's, To decrease level of supervision to perform tasks, To improve ability of physical actions for home/community/work/leisure, To improve gait and locomotor functions, To improve health of tissue, To decrease soft tissue restriction, To improve endurance Therapeutic Exercise to Include: Strength training, Flexibilty training, Passive ROM, Dynamic Lumbar Stabilization For the Purpose of:: To decrease pain, To decrease swelling/inflammation, To increase ROM, To improve nutrient delivery to tissue, To increase oxygenation perfusion, To improve muscle performance and motor function, To improve ability to perform ADL's, To increase tolerance to activity/condition/position, To improve performance and independence with ADL's, To improve gait and locomotor functions, To improve health of tissue, To decrease soft tissue restriction, To increase flexibility/ROM Thank you for the opportunity to evaluate your patient. For Medicare and Medicare HMO plans, please review the plan of care and approve it. It will need to be FAXED BACK to us at [phone] for Medicare purposes. For Medicare only, by signing this I certify the plan of care. Please let me know if there are questions or concerns regarding this plan of care. Physician Signature: Date:
== END 2020-12-03 19:00 | disposition home or self-care (01) ==
LOC: PT 16:30
PROVIDERS: PCP Internal Medicine; Referring Provider Orthopaedic Surgery Sports Medicine; Visit Provider Orthopaedic Surgery Sports Medicine
DX: M17.11 Unilateral primary osteoarthritis, right knee (principal)
CPT/HCPCS: 97110; 97113; 97161; 97530

== ENCOUNTER → 2021-01-17 07:37 | Outpatient (CLI) | payer OTHER, SELFPAY ==
[2021-01-17 09:23] LABS: Cholesterol 187 mg/dL (200); High Density Lipoprotein 54 mg/dL; Triglycerides 177 mg/dL; Very Low Density Lipoprotein 35 mg/dL (5-40)
== END ==
PROVIDERS: PCP Internal Medicine; Referring Provider Internal Medicine; Visit Provider Internal Medicine
DX: I10 Essential (primary) hypertension (principal)
CPT/HCPCS: 36415; 80061

== ENCOUNTER 2021-03-31 16:29 | Emergency (ER) | payer OTHER, SELFPAY ==
[2021-01-21 16:09] VITALS: BMI 45.5
[2021-03-31 16:30] VITALS: BP 158/86; PULSE 99; RESP 17; TEMP 37.4; O2SAT 96; BMI 43.2
--- NOTE | 2021-03-31 16:45 | EX.ED.DYSGE1 ---
HPI History of Present Illness Chief Complaint: Lower Extremity Injury Detail of Chief Complaint: Redness and swelling to right lower extremity Informant: patient Narrative Narrative: Patient presents to the emergency department with complaint of redness and swelling to the right lower leg that she initially noticed yesterday when she woke up. Patient outlined the area with marker and today noticed that it had spread significantly to the periphery. She denies any fevers or chills. She denies any trauma to her leg. Patient states that she has had some swelling to the right lower extremity for many months and states that she needs to have a knee replacement on the right. About a year ago she had a ultrasound of the right lower extremity because there was a lump that she was worried about there was no evidence of DVT at that time. She denies recent travel or surgery. Patient is not diabetic. Prior similar symptoms: No PFSH PFSH Medical History (Updated 03/31/21 @ 16:[address] Maverick Charlton, DO) Asthma Headache Hyperlipidemia Right knee pain Home Medications fexofenadine-pseudoephedrine 1 tab.sr PO DAILY 12/01/18 [History Last Taken 02/15/20] thrive PO 03/24/20 [History Last Taken Unknown] ibuprofen 600 mg tablet 600 mg PO BID PRN tab 01/21/21 [History Last Taken Unknown] loperamide 2 mg capsule 2 mg PO Q6H PRN 01/21/21 [History Last Taken Unknown] plexis PO 01/21/21 [History Last Taken Unknown] cephalexin 500 mg PO Q6 #40 capsule 03/31/21 [Rx Last Taken Unknown] sulfamethoxazole-trimethoprim [Bactrim DS] 1 tab PO BID #20 tab 03/31/21 [Rx Last Taken Unknown] Allergy/AdvReac Type Severity Reaction Status Date / Time No Known Allergies Allergy Verified 03/31/21 16:32 Family History Father Myocardial infarction Mother Hypertension CHF (congestive heart failure) Uterine cancer Grandfather Myocardial infarction Grandmother Myocardial infarction Grandfather CHF (congestive heart failure) Grandmother Breast cancer Surgical History Carpal tunnel syndrome History of cholecystectomy History of tonsillectomy Status post lateral meniscectomy of right knee Social History (Updated 01/21/21 @ 16:09 by Kristyn Briceño) Smoking Status: Former smoker alcohol intake: current alcohol intake frequency: holidays/special occasions only substance use type: does not use what type of physical activity do you participate in: none ROS ROS ED Constitutional Constitutional ED: Reports systems reviewed and no addt'l complaints, except as documented; Denies body ache(s), change in weight or chills Eyes Eyes: Denies acute decrease in peripheral vision, change in vision, double vision or loss of vision ENT ENT ED: Reports none; Denies ear pain, lip swelling, loss taste/smell, neck pain, otalgia or sore throat Cardiovascular Cardiovascular: Reports none; Denies abdominal pain, chest pain with activity, leg edema, lightheadedness, palpitations, rapid heart rate or syncope Respiratory/Chest Respiratory/Chest: Reports none; Denies change in mental status, dry cough, dyspnea, hemoptysis, shortness of breath at rest or shortness of breath with exertion Gastrointestinal Gastrointestinal: Reports none; Denies abdominal pain, change in stool character, diarrhea, hematemesis, hematochezia, melena, rectal bleeding or vomiting Genitourinary Genitourinary ED: Reports none; Denies abdominal discomfort, anuria, dysuria, genital pain or polyuria Musculoskeletal Musculoskeletal: Reports none; Denies arthralgias, back pain, difficulty walking, extremity pain, muscle weakness or myalgias Integumentary Reports none, rash and other Details: Redness and swelling to right lower extremity ; Denies abscess Neurologic Neurologic: Reports none; Denies abnormal gait, confusion, focal weakness, frequent falls, headache(s), loss of vision, numbness, paresthesias, radicular pain, vertigo or weakness Psychiatric Psychiatric: Reports systems reviewed and no addt'l complaints, except as documented and none; Denies behavioral changes, confusion, difficulty concentrating, hallucinations, suicidal ideation, tactile hallucinations or visual hallucinations Endocrine Endocrinology: Denies none, cold intolerance, excessive sweating, fatigue or heat intolerance Hematologic/Lymphatic Hematologic/Lymphatic: Reports none; Denies anemia, easy bleeding or easy bruising Allergic/Immunologic Allergic/Immunologic ED: Denies as per HPI, none, lip swelling, mouth swelling, throat swelling, tongue swelling or hives EXAM Physical Exam Const Vital Signs: 03/31/21 16:30 Temperature 99.3 F H Temperature Source Temporal Pulse Rate 99 Respiratory Rate 17 Blood Pressure 158/86 H Blood Pressure Mean 110 Pulse Ox 96 Oxygen Delivery Method Room Air Positive well nourished and well developed General Appearance ED: well developed and NAD HEENT Reports TM's clear and moist mucous membranes normocephalic and atraumatic; Negative for trauma or tenderness Tympanic Membrane ED: Yes TM's clear Eyes PERRL and EOMs intact bilaterally General Eye ED: Negative for pale conjunctiva or scleral icterus Neck no lymphadenopathy, supple and no JVD General: Negative for tenderness Chest Wall inspection of chest normal and palpation of chest normal Chest: Negative for tenderness Resp normal respiratory effort and clear to auscultation bilaterally Effort and Inspection: Negative for respiratory distress or pain with movement Auscultation: Negative for rhonchi, wheezes or diminished lung sounds Cardio regular rate, regular rhythm, S1 normal heart sound, S2 normal heart sound and no murmurs Peripheral Pulses: pulses 2+ throughout GI normal to inspection, nondistended, normoactive bowel sounds, soft to palpation, non-tender, non-distended and no masses Back/Spine no CVA tenderness and no thoracic nor lumbar tenderness Extremity normal to inspection Extremity Narrative: Patient has an area of erythema to the anterior aspect of the distal third of the [place] on the right leg. The area measures approximately 9 x 5 cm. Area is warm to the touch and cellulitic in appearance. There is no evidence of fluctuance or abscess. General Extremety ED: Negative for edema General Extremity: Negative for edema Neuro oriented x3, CN's II-XII intact bilaterally, no sensory deficits noted and gait normal Sensorium / Orientation: awake, alert, oriented to person, oriented to place and oriented to time Motor Exam: strength 5/5 throughout and strength abnormal Psych mental status grossly normal Skin no rashes or lesions noted and no wounds Skin Narrative: Cellulitis to right lower extremity anterior [place]. MDM MDM MDM Narrative Medical decision making narrative: I suspect patient likely has the start of a cellulitis. Her exam is not consistent with DVT. I do not feel she needs any further evaluation for DVT. Patient had the area of erythema outlined with permanent marker. She was started on Keflex and Bactrim in the department. Discharge Plan Triage Chief Complaint: Lower Extremity Injury ED Provider: Maverick Charlton Dx/Rx/DC Orders Clinical Impression: Cellulitis of leg, right Instructions: Cellulitis Prescriptions: New cephalexin [cephalexin] 500 MG capsule 500 mg PO Q6 Qty: 40 RF: 0 sulfamethoxazole-trimethoprim [Bactrim DS] 800-160 mg tablet 1 tab PO BID Qty: 20 RF: 0 No Action thrive PO RF: 0 plexis PO RF: 0 loperamide [Imodium A-D] 2 mg capsule 2 mg PO Q6H PRNRF: 0 ibuprofen 600 mg tablet 600 mg PO BID PRNRF: 0 fexofenadine-pseudoephedrine 1 TAB.SR tablet extended release 24 hr 1 tab.sr PO DAILY RF: 0 Primary Care Provider: Roslyn Dumont Referrals: Roslyn Dumont MD [Primary Care Provider] - 3-5 Days Disposition Disposition: Home, Self Care
[2021-03-31] MEDS: Cephalexin 250 MG Capsule 500 MG PO (16:49)
[2021-03-31] MEDS: Smz/Tmp Ds Tablet 1 TABLET PO (16:49)
== END 2021-03-31 17:07 | disposition home or self-care (01) ==
LOC: ED 17:04
PROVIDERS: Emergency Provider Emergency Medicine; PCP Internal Medicine
DX: L03.115 Cellulitis of right lower limb (principal); Z87.891 Personal history of nicotine dependence; Z79.899 Other long term (current) drug therapy
CPT/HCPCS: 99283

== ENCOUNTER 2021-04-01 17:30 | Outpatient (RCR) | payer OTHER, SELFPAY ==
[2021-01-21 16:09] VITALS: BMI 45.5
--- NOTE | 2021-02-04 18:04 | HP.PTEVAL_ITS ---
Patient's Visit Information GANESH COHN is a 46 year old F referred to Physical Therapy by Dr. Sloan Garcia MD with a diagnosis of OA of R knee. Date of Evaluation: 02/04/21 Physical Therapist: ANTONIO Irving - Visit Plan Frequency: 3x /Week Duration: 6 Weeks Plan: 3X/ week for 5 weeks for bike to decrease swelling, R knee AROM, R hip and knee strength, core stability with HEP - Subjective Pt had arthroscopic surgery to clean out the meniscus and arthritis that was in the knee. said that she has to do 6 weeks of therapy, take medication and possible gel injections. Pt has been trying to walk right... she is getting muscle pain as well. She has been doing a non weight bearing stepper at home. She has been trying to do other exercises at home. She has seen a chiropractor 3 X and they have put her knee back to the point she can now walk on it. Pt has a pool at home and will continue to do her AT at home but wants to try land therapy to see if it will get any better. If she is taking smaller strides she feels it is more stable. When takes long strides it sometimes hurts and her muscles will cramp up... really depends on the day. Her R leg is all swollen today. She feels her knee is more sturdy with it being swollen. Stairs: she has medial knee pain but can alternate them again with a railing. When she descends the step she has to hop off the step cause it hurts to bend it. When she pushes off her R knee it hurts and feels weak. No N&T. + weakness in the R knee. She has pain walking up a grade but walking on flat surface she just feels fatigued. She had a cortizone injection in November and only helped for a day or two. HEP: SLR, S/L hip abd, HS stretches, sit to stands, steps ( flares it up), QS - Pain R knee pain Pain Intensity (Out of 10): 1 Pain Intensity Range: 8 Comment: with walking going up a grade - Objective Gait: Walks with short step and decreased stride length. R knee AROM -10 degrees from full extension to 110 degrees R knee flexion. L knee AROM 0- 120 degrees L knee flexion. Girth measurements: R knee is visably more swollen than the L. LE MMT: R hip abd 4-/5, L hip abd 4/5, B hip flex 3+/5, R knee flexion 4-/5 and L 4+/5, R knee ext 4-/5 and L knee ext 4/5. Pt is able to walk on heels and toes but has increase pain when walking on her toes. Pt is able to do a 1/2 normal ROM bridge. - Goals Goal 1:: I HEP Goal Time Frame: 6-8 Weeks Goal 2:: Increase R knee AROM -5 degrees to 120 degrees knee flexion Goal Time Frame: 6-8 Weeks Goal 3:: Be able to walk with longer strides without having feeling of weakness in her legs Goal Time Frame: 6-8 Weeks Goal 4:: Increase R hip and knee strength by 1/2 muscle grade ( at time of eval: LE MMT: R hip abd 4-/5, L hip abd 4/5, B hip flex 3+/5, R knee flexion 4-/5 and L 4+/5, R knee ext 4-/5 and L knee ext 4/5. Pt is able to walk on heels and toes but has increase pain when walking on her toes. Pt is able to do a 1/2 normal ROM bridge). Goal Time Frame: 6-8 Weeks - Rehabilitation Potential Rehabilitation Potential: Good - Anticipated Interventions Patient/Client Instruction: Educate patient on: Condition, Plan of Care For the Purpose of:: To decrease pain, To decrease swelling/inflammation, To increase ROM, To improve nutrient delivery to tissue, To improve muscle performance and motor function, To improve ability to perform ADL's, To increase tolerance to activity/condition/position, To improve performance and independence with ADL's, To decrease level of supervision to perform tasks, To improve ability of physical actions for home/community/work/leisure, To improve gait and locomotor functions, To improve balance, To improve safety with gait Therapeutic Exercise to Include: Strength training, Balance training, Flexibilty training, Gait and locomotor training, Neuromotor development, Passive ROM, Active ROM For the Purpose of:: To decrease pain, To decrease swelling/inflammation, To i ncrease ROM, To improve nutrient delivery to tissue, To improve muscle performance and motor function, To improve ability to perform ADL's, To increase tolerance to activity/condition/position, To improve performance and independence with ADL's, To improve gait and locomotor functions, To improve health of tissue, To decrease soft tissue restriction, To increase flexibility/ROM, To improve safety with gait Functional Training to Include: Gait training For the Purpose of:: To improve gait and locomotor functions, To improve safety with gait IF ES: Yes Cryotherapy (ice pack, ice massage): Yes For the Purpose of:: To decrease pain, To decrease swelling/inflammation, To increase ROM, To improve nutrient delivery to tissue Thank you for the opportunity to evaluate your patient. For Medicare and Medicare HMO plans, please review the plan of care and approve it. It will need to be FAXED BACK to us at [phone] for Medicare purposes. For Medicare only, by signing this I certify the plan of care. Please let me know if there are questions or concerns regarding this plan of care. Physician Signature: Date:
--- NOTE | 2021-04-01 18:03 | HP.PTDCSUM ---
It has been my pleasure to treat GANESH COHN referred by Dr. Sloan Garcia MD, with the diagnosis of OA of R knee for a total of 19 visit(s). Discharge Date: 04/01/21 Please see the following information for a summary of their discharge status. Subjective: Pt reports that she has cellulitus in her R leg now. Therapy was not helping until she started to lift weights. She still has pain but the weights have really helped. Pt wants to try the gel injections. Pt still has to make her Dr appt for that. She has an elliptical at home and total gym at home. Pt still has pain but she feels that it has changed and she is having more knee pain but the cramping is less.... Stairs: depends on if her leg is inflammed or not. R knee pain Pain Intensity (Out of 10): 2 % Improvement: 50 Objective/Function: R knee ext -5 degrees, and 110 R knee flexion. Stairs; Up stairs with definite difficulty pushing through the step ascending and decreased eccentric control descending the step with hand rails. LE MMT: R hip abd 4-/5, L hip abd 4/5, B hip flex 3+/5, R knee flexion 4-/5 and L 4+/5, R knee ext 4-/5 and L knee ext 4/5. Pt is able to walk on heels and toes but has increase pain when walking on her toes. Pt is able to do a 1/2 normal ROM bridge). Goal 1:: I HEP Goal Progress: Goal Met Goal 2:: Increase R knee AROM -5 degrees to 120 degrees knee flexion Goal Progress: Progressing Goal 3:: Be able to walk with longer strides without having feeling of weakness in her legs Goal Progress: Goal Met Goal 4:: Increase R hip and knee strength by 1/2 muscle grade ( at time of eval: LE MMT: R hip abd 4-/5, L hip abd 4/5, B hip flex 3+/5, R knee flexion 4-/5 and L 4+/5, R knee ext 4-/5 and L knee ext 4/5. Pt is able to walk on heels and toes but has increase pain when walking on her toes. Pt is able to do a 1/2 normal ROM bridge). Plan: DC PT to home exercises. she is going to try and lose weight and contact MD noyola gel shots. Discharge Comments: DC PT to HEP If there are questions or concerns regarding this patient's physical therapy, please feel free to call me at [phone]. Thank you for the referral of this patient. Sincerely, Mira Tineo, MPT
== END 2021-04-01 19:00 | disposition home or self-care (01) ==
LOC: PT 17:30
PROVIDERS: PCP Internal Medicine; Referring Provider Nurse Practitioner Family; Visit Provider Orthopaedic Surgery Sports Medicine
DX: M17.11 Unilateral primary osteoarthritis, right knee (principal); Z98.890 Other specified postprocedural states
CPT/HCPCS: 97110; 97161; 97530

== ENCOUNTER 2021-04-01 20:25 | Emergency (ER) | payer OTHER, SELFPAY ==
[2021-03-31 16:30] VITALS: BMI 43.2
[2021-04-01 20:26] VITALS: BP 146/92; PULSE 99; RESP 15; TEMP 36.4; O2SAT 97; BMI 42.9
[2021-04-01 21:12] LABS: Absolute Neutrophil Count 5.1 X10^3/uL (2.0-7.7); Basophil# 0.02 X10^3/uL; Basophil% 0.3 % (0-1); Eosinophils% 2.6 % (0-5); Hematocrit 38.1 % (37-47); Lymphocyte % 21.9 % (19-41); Mean Corp Hgb Conc 34.1 g/dL (32-36); Mean Corpuscular Hgb 29.8 pg (27.0-32.0); Mean Corpuscular Volume 87.4 fL (81-99); Mean Platelet Vol. 11.1 fl (6.2-12.0); Monocyte# 0.67 X10^3/uL; Monocyte% 8.6 % (0-10); NRBC Flagged by Analyzer 0 % (0-5); Neutrophil # 5.14 X10^3/uL (2.7-7.7); Neutrophil % 66.3 % (47-70); Platelet Count 208 K/mm3 (150-450); RBC Distribution Width CV 12.8 % (11.6-14.6); RBC Distribution Width SD 41.3 fl (35.1-43.9); Red Blood Count 4.36 M/mm3 (4.2-5.4); White Blood Count 7.8 K/mm3 (4.4-11.0)
[2021-04-01 21:26] LABS: Anion Gap 4 (5-15); BUN 12 mg/dL (7-18); BUN/Creat Ratio 11.5 RATIO (10-20); Calcium,Total 8.5 mg/dL (8.5-10.1); Chloride 107 mmol/L (98-107); Creatinine, Serum 1.04 mg/dL (0.55-1.02); EST Glomerular Filtration Rate 61 mL/min (>60); Est Glom Filt Rate - Afr Amer 74 mL/min (>60); Estimated Creatinine Clearance 58.99 ml/min; Glucose 89 mg/dL (74-106); Potassium 3.7 mmol/L (3.5-5.1); Sodium Level 137 mmol/L (136-145)
[2021-04-01 23:16] VITALS: RESP 15
--- NOTE | 2021-04-01 23:18 | EX.ED.DYSGE1 ---
HPI History of Present Illness Chief Complaint: Cellulitis Informant: patient Onset/Context/Timing Onset: Days (2-3) Context: Gradual Onset Timing: Continuous Quality: sore Location: right lower leg Current Severity: Moderate Maximum Severity: Moderate Worsened by: palpation, walking Relieved by: rest Associated Symptoms Associated Symptoms: redness, swelling; no fevers/chills Narrative Narrative: Patient presents with spontaneous onset tender swollen red area right lower leg, started a couple days ago. She was seen in the ER yesterday and started on antibiotics, she is taking in 2 doses of cephalexin and Bactrim, she presents now that the redness has extended beyond the line that was drawn around it yesterday, she has no systemic symptoms or lymphangitic streaking, drainage from the wound, or any other symptoms but she was concerned that the redness came so far up above the edge of the line that was drawn. She admits that it is hard to tell the border of where it is now. She has chronic swelling in this leg because of chronic knee problems, she has never had MRSA, she denies any injury, she denies any foreign body or anything else that could be associated with this problem that she can think of. No history of abscesses that required drainage. [facility] Medical History Asthma Headache Hyperlipidemia Right knee pain Home Medications thrive PO 03/24/20 [History Last Taken Unknown] ibuprofen 600 mg tablet 600 mg PO BID PRN tab 01/21/21 [History Last Taken Unknown] loperamide 2 mg capsule 2 mg PO Q6H PRN 01/21/21 [History Last Taken Unknown] plexis PO 01/21/21 [History Last Taken Unknown] cephalexin 500 mg PO Q6 #40 capsule 03/31/21 [Rx Last Taken Unknown] sulfamethoxazole-trimethoprim [Bactrim DS] 1 tab PO BID #20 tab 03/31/21 [Rx Last Taken Unknown] Allergy/AdvReac Type Severity Reaction Status Date / Time No Known Allergies Allergy Verified 04/01/21 20:28 Family History Father Myocardial infarction Mother Hypertension CHF (congestive heart failure) Uterine cancer Grandfather Myocardial infarction Grandmother Myocardial infarction Grandfather CHF (congestive heart failure) Grandmother Breast cancer Surgical History Carpal tunnel syndrome History of cholecystectomy History of tonsillectomy Status post lateral meniscectomy of right knee Social History Smoking Status: Never smoker alcohol intake: current alcohol intake frequency: holidays/special occasions only substance use type: does not use what type of physical activity do you participate in: none ROS ROS ED Constitutional Constitutional ED: Denies chills or fever(s) Eyes Eyes: Denies change in vision or diplopia ENT ENT ED: Denies rhinorrhea or sore throat Cardiovascular Cardiovascular: Denies chest pain or palpitations Respiratory/Chest Respiratory/Chest: Denies cough or dyspnea Gastrointestinal Gastrointestinal: Denies abdominal pain, diarrhea, nausea or vomiting Genitourinary Genitourinary ED: Denies dysuria or hematuria Musculoskeletal Musculoskeletal: Denies back pain or neck pain Integumentary Reports as per HPI and rash; Denies abscess Neurologic Neurologic: Denies headache(s), paresthesias or weakness Psychiatric Psychiatric: Denies anxiety or suicidal thoughts EXAM Physical Exam Const Vital Signs: 04/01/21 20:26 04/01/21 23:16 Temperature 97.6 F L Temperature Source Temporal Pulse Rate 99 Respiratory Rate 15 15 Blood Pressure 146/92 H Blood Pressure Mean 110 Pulse Ox 97 Oxygen Delivery Method Room Air Positive well nourished and well developed General Appearance ED: well developed and NAD HEENT Reports moist mucous membranes normocephalic and atraumatic Eyes PERRL and EOMs intact bilaterally Neck full ROM and supple Resp normal respiratory effort and clear to auscultation bilaterally Cardio regular rate, regular rhythm and no murmurs GI non-tender and non-distended Auscultation: normoactive bowel sounds Palpation: soft Back/Spine no CVA tenderness General Back: other FROM Extremity General Extremety ED: Negative for pulses abnormal General Extremity: Negative for pulses abnormal Neuro oriented x3, CN's II-XII intact bilaterally and no sensory deficits noted Sensorium / Orientation: awake and alert Motor Exam: strength 5/5 throughout Skin no wounds Skin Narrative: Dense erythema which is quite tender at a area anterior right distal lower leg, above the ankle and not involving the joint, with surrounding erythema that extends a decent distance proximal to the line drawn around the main area; no lymphangitic streaking, the proximal border of the erythema is not well-defined anywhere, but the approximate amount of extension is 4-7 cm. No fluctuance or definite abscess. No discharge of any sort. No other skin lesions. MDM MDM MDM Narrative Medical decision making narrative: I obtained the ED ultrasound and using the vascular probe image the entire area. There are no drainable collections at this time. The entire area is consistent with cellulitis when compared with normal skin surrounding it. Therefore, basic labs were obtained in addition to giving the patient a dose of IV vancomycin. Since she has not been on antibiotics for even 24 hours, I do not think she has failed outpatient treatment yet, but I think giving her a dose of IV antibiotics to cover MRSA as well as other gram-positive organisms would be reasonable since the erythema has spread fairly proximal to the border that was drawn yesterday. The patient is amenable to discharge home continuing the antibiotics as prescribed which I agree with, and we discussed reasons to return which include symptoms of sepsis, abscess, or lymphangitic streaking. Lab Data Labs: Laboratory Results - last 24 hr 04/01/21 04/01/21 21:00 21:00 WBC 7.8 RBC 4.36 Hgb 13.0 Hct 38.1 MCV 87.4 MCH 29.8 MCHC 34.1 RDW Std Deviation 41.3 RDW Coeff of Archana 12.8 Plt Count 208 MPV 11.1 Immature Gran % (Auto) 0.300 Neut % (Auto) 66.3 Lymph % (Auto) 21.9 [place] % (Auto) 8.6 Eos % (Auto) 2.6 Baso % (Auto) 0.3 Absolute Neuts (auto) 5.1 Absolute Lymphs (auto) 1.70 Nucleated RBC % 0 Sodium 137 Potassium 3.7 Chloride 107 Carbon Dioxide 26.0 Anion Gap 4 L BUN 12 Creatinine 1.04 H Estim Creat Clear Calc 58.99 Est GFR (MDRD) Af Amer 74 Est GFR (MDRD) Non-Af 61 BUN/Creatinine Ratio 11.5 Glucose 89 Calcium 8.5 Discharge Plan Triage Chief Complaint: Cellulitis ED Provider: Billy Stout Dx/Rx/DC Orders Clinical Impression: Cellulitis of right leg Instructions: ED Cellulitis Prescriptions: No Action thrive PO RF: 0 plexis PO RF: 0 loperamide [Imodium A-D] 2 mg capsule 2 mg PO Q6H PRN (Reason: Diarrhea) RF: 0 ibuprofen 600 mg tablet 600 mg PO BID PRN (Reason: Pain) RF: 0 cephalexin [cephalexin] 500 MG capsule 500 mg PO Q6 Qty: 40 RF: 0 sulfamethoxazole-trimethoprim [Bactrim DS] 800-160 mg tablet 1 tab PO BID Qty: 20 RF: 0 Primary Care Provider: Roslyn Dumont Referrals: Roslyn Dumont MD [Primary Care Provider] - 1-2 Days if not improving (or return to ER if fever, red streak up toward groin, suspected abscess formation, or progressively worsening redness) Activity Restrictions/Additional Instructions: Continue taking previously prescribed antibiotics as prescribed until completely gone Disposition Disposition: Home, Self Care
[2021-04-01] MEDS: DiphenhydrAMINE 50 MG/ML Syringe 25 MG IV (23:20)
== END 2021-04-02 00:30 | disposition home or self-care (01) ==
PROVIDERS: Emergency Provider Emergency Medicine; PCP Internal Medicine
DX: L03.115 Cellulitis of right lower limb (principal)
CPT/HCPCS: 80048; 85025; 96365; 96366; 96375; 99283; J7040; A4216

== ENCOUNTER 2021-04-06 19:08 | Emergency (ER) | payer OTHER, SELFPAY ==
[2021-04-06 19:09] VITALS: BP 163/87; PULSE 93; RESP 14; TEMP 36.4; O2SAT 97; BMI 43.6
--- NOTE | 2021-04-06 19:26 | US_ITS ---
EXAM: US DUPLEX RIGHT LOWER EXTREMITY VEINS CLINICAL INDICATION: RT LOWER CALF CELLULITIS, REDNESS AND SWELLING TECHNIQUE: Real-time duplex ultrasound scan of the right lower extremity veins integrating B-mode two-dimensional vascular structure, Doppler spectral analysis, color flow Doppler imaging and compression. This report was created using [employer] report generation technology. COMPARISON: None. FINDINGS: DEEP VEINS: Unremarkable. No DVT in the visualized common femoral, femoral, proximal deep femoral or popliteal veins. The veins demonstrate normal color flow, are normally compressible, with normal phasic flow and/or augmentation response. SUPERFICIAL VEINS: Unremarkable. No thrombus in the visualized great saphenous vein. SOFT TISSUES: Moderate calf edema. No popliteal cyst. US/Venous Duplex Imag/Limited/Uni IMPRESSION: Calf edema, otherwise no acute findings in the right lower extremity veins. Electronically Signed: Radha Fields MD at 20:57 EDT Tel , Service support ,
--- NOTE | 2021-04-06 19:26 | EX.ED.DYSGE1 ---
HPI History of Present Illness Chief Complaint: Cellulitis Informant: patient Onset/Context/Timing Onset: Weeks (1) Context: Gradual Onset Timing: Continuous Quality: Sharp Location: Right lower leg Worsened by: Standing Relieved by: Nothing Narrative Narrative: Patient presents with cellulitis to her right lower extremity. Patient was diagnosed with this approximately 1 week ago. Patient states she has been taking the antibiotics as prescribed. Patient admits to some increasing swelling in her right lower leg. Patient states the pain is sharp. Patient states pain is worse with standing. Patient denies any paresthesias or weakness. Patient denies any fevers or chills. PFSH PFS Medical History Asthma Headache Hyperlipidemia Right knee pain Home Medications thrive PO 03/24/20 [History Last Taken Unknown] ibuprofen 600 mg tablet 600 mg PO BID PRN tab 01/21/21 [History Last Taken Unknown] loperamide 2 mg capsule 2 mg PO Q6H PRN 01/21/21 [History Last Taken Unknown] plexis PO 01/21/21 [History Last Taken Unknown] sulfamethoxazole-trimethoprim [Bactrim DS] 1 tab PO BID #20 tab 03/31/21 [Rx Last Taken Unknown] amoxicillin-pot clavulanate 875 mg PO Q12H #20 tablet 04/06/21 [Rx Last Taken Unknown] Allergy/AdvReac Type Severity Reaction Status Date / Time No Known Allergies Allergy Verified 04/06/21 19:09 Family History Father Myocardial infarction Mother Hypertension CHF (congestive heart failure) Uterine cancer Grandfather Myocardial infarction Grandmother Myocardial infarction Grandfather CHF (congestive heart failure) Grandmother Breast cancer Surgical History Carpal tunnel syndrome History of cholecystectomy History of tonsillectomy Status post lateral meniscectomy of right knee Social History Smoking Status: Never smoker alcohol intake: current alcohol intake frequency: holidays/special occasions only substance use type: does not use what type of physical activity do you participate in: none ROS ROS ED Constitutional Constitutional ED: Denies chills or fever(s) Eyes Eyes: Denies blurry vision or change in vision ENT ENT ED: Denies rhinorrhea or sore throat Cardiovascular Cardiovascular: Denies chest pain or palpitations Respiratory/Chest Respiratory/Chest: Reports dyspnea; Denies cough Gastrointestinal Gastrointestinal: Reports nausea; Denies vomiting Genitourinary Genitourinary ED: Denies dysuria or hematuria Musculoskeletal Musculoskeletal: Denies back pain or neck pain Integumentary Reports rash; Denies abscess Neurologic Neurologic: Denies headache(s) or weakness Allergic/Immunologic Allergic/Immunologic ED: Denies mouth swelling or urticaria EXAM Physical Exam Const Vital Signs: 04/06/21 19:09 04/06/21 19:35 Temperature 97.5 F L 97.5 F L Temperature Source Temporal Temporal Pulse Rate 93 93 Respiratory Rate 14 14 Blood Pressure 163/87 H 163/87 H Blood Pressure Mean 112 112 Pulse Ox 97 97 Oxygen Delivery Method Room Air Room Air Positive well nourished and well developed General Appearance ED: well developed HEENT Reports moist mucous membranes Neck supple Extremity Extremity Narrative: There is tenderness and edema of the right lower leg. There is erythema and warmth over the anterior medial aspect of the distal lower leg. There is no evidence of any abscess. There is no fluctuance. There is some induration noted. There is no discharge or drainage. Posterior tibial pulses are equal bilaterally. There is good range of motion in the right knee and right ankle. There are no sensory deficits noted. Neuro oriented x3 and no sensory deficits noted Sensorium / Orientation: alert Motor Exam: strength 5/5 throughout Psych mental status grossly normal MDM MDM MDM Narrative Medical decision making narrative: Venous duplex of the right lower extremity was obtained. There is no evidence of DVT. Patient was advised of her findings. Patient was instructed to stop taking her Keflex. Patient was given a prescription for Augmentin. Patient was instructed to follow-up with her primary care physician in 5 to 7 days. Patient understood and was agreeable with the plan. All questions were answered. Discharge Plan Triage Chief Complaint: Cellulitis ED Provider: Selvin West Dx/Rx/DC Orders Clinical Impression: Cellulitis of leg, right Instructions: ED Cellulitis Prescriptions: New amoxicillin-pot clavulanate [amoxicillin-pot clavulanate] 875 MG tablet 875 mg PO Q12H Qty: 20 RF: 0 Discontinued cephalexin [cephalexin] 500 MG capsule 500 mg PO Q6 Qty: 40 RF: 0 No Action thrive PO RF: 0 plexis PO RF: 0 loperamide [Imodium A-D] 2 mg capsule 2 mg PO Q6H PRN (Reason: Diarrhea) RF: 0 ibuprofen 600 mg tablet 600 mg PO BID PRN (Reason: Pain) RF: 0 sulfamethoxazole-trimethoprim [Bactrim DS] 800-160 mg tablet 1 tab PO BID Qty: 20 RF: 0 Primary Care Provider: Roslyn Dumont Referrals: Roslyn Dumont MD [Primary Care Provider] - 5-7 Days Disposition Disposition: Home, Self Care
[2021-04-06 19:35] VITALS: BP 163/87; PULSE 93; RESP 14; TEMP 36.4; O2SAT 97
== END 2021-04-06 21:08 | disposition home or self-care (01) ==
PROVIDERS: Emergency Provider Emergency Medicine; PCP Internal Medicine
DX: L03.115 Cellulitis of right lower limb (principal); Z79.899 Other long term (current) drug therapy
CPT/HCPCS: 93971; 99282

== ENCOUNTER 2021-05-11 15:38 | Outpatient (RCR) | payer SELFPAY ==
[2021-04-09 15:18] VITALS: BMI 44.6
[2021-04-20 15:49] VITALS: BMI 44.6
== END 2021-05-26 23:59 ==
LOC: NS 15:38
PROVIDERS: PCP Internal Medicine; Visit Provider Nurse Practitioner Adult Health
DX: Z71.3 Dietary counseling and surveillance (principal); E66.01 Morbid (severe) obesity due to excess calories; Z68.41 Body mass index [BMI] 40.0-44.9, adult; R60.0 Localized edema; G47.30 Sleep apnea, unspecified; E78.5 Hyperlipidemia, unspecified
CPT/HCPCS: 97802

== ENCOUNTER → 2021-06-29 10:18 | Outpatient (CLI) | payer OTHER, SELFPAY | PROVIDERS: PCP Internal Medicine; Visit Provider Physician Assistant Surgical | DX: Z20.822 Contact with and (suspected) exposure to COVID-19 (principal) | CPT/HCPCS: 87635; U0005; U0003 ==

== ENCOUNTER → 2021-07-02 10:53 | Outpatient (CLI) | payer OTHER, SELFPAY | PROVIDERS: PCP Internal Medicine; Referring Provider Nurse Practitioner Family; Visit Provider Nurse Practitioner Family | DX: Z20.822 Contact with and (suspected) exposure to COVID-19 (principal); R06.00 Dyspnea, unspecified | CPT/HCPCS: 87635; U0005; U0003 ==

== ENCOUNTER 2021-12-16 15:36 | Outpatient (CLI) | payer BC, SELFPAY ==
[2021-12-16 16:38] LABS: Absolute Lymphocyte Count 1.84 X10^3/uL (0.83-4.51); Basophil# 0.02 X10^3/uL; Basophil% 0.3 % (0-1); Eosinophil# 0.19 X10^3/uL; Eosinophils% 2.9 % (0-5); Hemoglobin 13.4 g/dL (12.0-15.0); Lymphocyte # 1.84 X10^3/ul (0.83-4.51); Lymphocyte % 27.6 % (19-41); Mean Corp Hgb Conc 33.5 g/dL (32-36); Mean Corpuscular Hgb 29.1 pg (27.0-32.0); Mean Corpuscular Volume 86.8 fL (81-99); Monocyte# 0.63 X10^3/uL; Monocyte% 9.5 % (0-10); NRBC Flagged by Analyzer 0 % (0-5); Neutrophil # 3.96 X10^3/uL (2.7-7.7); Neutrophil % 59.4 % (47-70); Platelet Count 216 K/mm3 (150-450); RBC Distribution Width CV 12.9 % (11.6-14.6); RBC Distribution Width SD 40.7 fl (35.1-43.9); Red Blood Count 4.61 M/mm3 (4.2-5.4); White Blood Count 6.7 K/mm3 (4.4-11.0)
[2021-12-16 16:58] LABS: ALB/GLOB Ratio 0.8 RATIO (0.9-2.4); AST(SGOT) 25 U/L (15-37); Alanine Aminotransfer ALT/SGPT 35 U/L (13-56); Albumin, Serum 3.3 g/dL (3.2-5.0); Alkaline Phosphatase 88 U/L (45-117); Anion Gap 3 (5-15); BUN 15 mg/dL (7-18); BUN/Creat Ratio 17.7 RATIO (10-20); Calcium,Total 8.7 mg/dL (8.5-10.1); Chloride 105 mmol/L (98-107); Creatinine, Serum 0.85 mg/dL (0.55-1.02); EST Glomerular Filtration Rate 77 mL/min (>60); Est Glom Filt Rate - Afr Amer 93 mL/min (>60); Globulin 4.1 g/dL (2.2-4.2); Glucose 98 mg/dL (74-106); Potassium 3.7 mmol/L (3.5-5.1); Protein, Total 7.4 g/dL (6.4-8.2); Sodium Level 138 mmol/L (136-145); T4 Free Direct 0.92 ng/dL (0.76-1.46); Thyroid Stim Hormone (TSH) 2.09 uIU/mL (0.358-3.74)
== END 2021-12-16 23:59 | disposition home or self-care (01) ==
LOC: BIMLAB 15:37
PROVIDERS: PCP Internal Medicine; Referring Provider Internal Medicine; Visit Provider Internal Medicine
DX: G47.33 Obstructive sleep apnea (adult) (pediatric) (principal); Z13.29 Encounter for screening for other suspected endocrine disorder
CPT/HCPCS: 36415; 80053; 84439; 84443; 85025

== ENCOUNTER → 2022-01-14 | Outpatient (CLI) | payer BC, SELFPAY ==
--- NOTE | 2022-01-14 14:37 | EKG12_ITS ---
Test Reason : LEG EDEMA Blood Pressure : / mmHG Vent. Rate : 073 BPM Atrial Rate : 073 BPM P-R Int : 130 ms QRS Dur : 070 ms QT Int : 396 ms P-R-T Axes : 062 -09 036 degrees QTc Int : 436 ms Normal sinus rhythm Low voltage QRS (PreCordial Leads) Poor R wave progression Confirmed by JHONNY RICKETTS, ANNE ([id number]), editor map ALEXIA SALDANA ([id number]) on 01/15/2022 5:48:01 AM Referred By: MARISSA Confirmed By:ANNE BARRY MD
--- NOTE | 2022-01-14 14:37 | ECHOCS_ITS ---
Reason For Study: DYSPNEA Procedure This was a 2D Doppler, Color Flow transthoracic echocardiogram. The study was technically difficult. Contrast injection was performed. Exam performed in department. Left Ventricle Normal LV size. Left ventricular systolic function is normal. The estimated ejection fraction is 65 %. No evidence for diastolic dysfunction. Right Ventricle Normal RV size. Normal systolic function. Atria Normal left atrium. Normal right atrium. No doppler evidence for ASD. Mitral Valve There is no mitral annular calcification. Normal mitral valve. Trivial mitral valve insufficiency. Tricuspid Valve Normal tricuspid valve. Trivial tricuspid valve insufficiency. Right ventricular systolic pressure estimated to be 30 mmHg. Aortic Valve Trisinus/trileaflet aortic valve. Normal aortic valve. Pulmonic Valve The pulmonic valve is not well visualized. Great Vessels Normal sized aortic root. Pericardium/Pleural No pericardial effusion. Medication 22 gauge I.V. with prn adaptor inserted into left arm. Diluted definity 3ml given slow IV push to enhance endocardial definition. MMode/2D Measurements & Calculations LVIDd: 4.4 cm IVSd: 0.79 cm Ao root diam: 2.5 cm LVIDs: 2.8 cm LVPWd: 0.75 cm FS: 37.7 % LAV(MOD-sp4): 35.2 ml LVAd ap4: 33.5 cm2 LVAd ap2: 31.4 cm2 LVLd ap4: 8.0 cm LVLd ap2: 7.8 cm EDV(MOD-sp4): 113.8 ml EDV(MOD-sp2): 103.7 ml EDV(sp4-el): 118.9 ml EDV(sp2-el): 107.4 ml LVAs ap4: 18.5 cm2 LVAs ap2: 17.7 cm2 LVLs ap4: 7.2 cm LVLs ap2: 6.6 cm ESV(MOD-sp4): 39.4 ml ESV(MOD-sp2): 38.6 ml ESV(sp4-el): 40.2 ml ESV(sp2-el): 40.3 ml EF(MOD-sp4): 65.4 % EF(MOD-sp2): 62.7 % EF(sp4-el): 66.2 % SV(MOD-sp4): 74.4 ml SV(MOD-sp2): 65.0 ml SV(sp4-el): 78.7 ml LA A4 area: 15.7 cm2 LA dimension(2D): 3.5 cm Doppler Measurements & Calculations MV E max lex: 88.4 cm/sec Lat Peak E' Lex: 14.1 cm/sec Med Peak E' Lex: 12.0 cm/sec MV A max lex: 70.6 cm/sec E/E' lat: 6.3 E/E' med: 7.4 MV E/A: 1.3 Ao V2 max: 142.5 cm/sec LV V1 max: 95.3 cm/sec TR max lex: 260.8 cm/sec Ao max P.1 mmHg LV V1 max P.6 mmHg TR max P.2 mmHg ECHO/Echo Complete W/ Contrast Interpretation Summary The study was technically difficult. Contrast injection was performed. Left ventricular systolic function is normal. The estimated ejection fraction is 65 %. Trivial mitral valve insufficiency. Trivial tricuspid valve insufficiency. Right ventricular systolic pressure estimated to be 30 mmHg. No evidence for diastolic dysfunction. Ordering Physician: Roslyn Dumont Referring Physician: Roslyn Dumont Performed By: Julia Graves RCS
== END | disposition home or self-care (01) ==
PROVIDERS: PCP Internal Medicine; Visit Provider Internal Medicine
CPT/HCPCS: 93005; 93306; Q9957; A4216; C8929

== ENCOUNTER → 2022-01-22 | Outpatient (CLI) | payer BC, SELFPAY ==
[2022-01-22 13:16] LABS: SARSInt. QC ok y
== END | disposition home or self-care (01) ==
LOC: LABSPEC 08:08
PROVIDERS: PCP Internal Medicine; Referring Provider Internal Medicine; Visit Provider Internal Medicine
DX: R19.7 Diarrhea, unspecified (principal); Z11.59 Encounter for screening for other viral diseases
CPT/HCPCS: 87635; U0003; U0005